=== PATIENT | male | born 1970 | race Caucasian/White ===

== ENCOUNTER 2016-07-05 15:25 | Emergency (ER) | payer MEDICAID ==
[~2016-07-05] VITALS: Ht 190.5 cm; Wt 158.8 kg
[~2016-07-05 15:25] MED LIST: PAXIL10 MG/5 ML PO; RISPERDAL1 MG/1 ML PO
--- NOTE | 2016-07-05 20:54 | Emergency Room Report ---
History of Present Illness General Chief Complaint: Behavioral Complaint Source: Patient Present Illness HPI 46-year-old male presents to the emergency department and upon initial evaluation the patient states that he wants to leave and that he no longer needs anything from us here in the emergency department. After the patient refill of his medication however he states "it's fine. I don't need anything, i just want to leave." History of present illness and ROS is limited due to patient cooperation and refusal of evaluation. Allergies: Coded Allergies: No Known Allergies (Unverified , 01/04/16) Nursing Documentation-[facility] Past Medical History: No History, Except For History Of Psychiatric Problem: Yes - Schizoaffective disorder, depression Review of Systems All Other Systems: limited - secondary to pt. cooperation Physical Exam Vital Signs Date Time Temp Pulse Resp B/P Pulse Ox O2 Delivery O2 Flow Rate FiO2 07/05/16 15:35 97.5 100 16 137/69 99 Room Air Sp02 EP Interpretation: reviewed, abnormal - tachycardic at 100bpm General Appearance: no apparent distress, alert, GCS 15, obese, other - Pt is desheveled, and had strong odor of urine. Head: normocephalic, atraumatic ENT: hearing grossly normal, normal pharynx, no angioedema, normal voice, other - obvious rhinorrhes in the right nare Neck: full range of motion, supple/symm/no masses Respiratory: no respiratory distress, speaking full sentences Cardiovascular #1: tachycardia - 100bpm Gastrointestinal: no guarding Musculoskeletal: back normal, gait/station normal, normal range of motion Neurologic: alert, oriented x3, responsive, motor strength/tone normal, normal gait, speech normal Psychiatric: memory normal, no suicidal/homicidal ideation, anxious, other - pt. is very desheveled, and anxious to leave. denies hearing voices. Skin: normal color, no rash Medical Decision Making PA Attestation Dr. Sheth is my supervising Physician whom patient management has been discussed with. Diagnostic Impression: Primary Impression: Encounter for medical screening examination Additional Impression: Behavioral disorder ER Course 46-year-old male presents to the emergency department and upon initial evaluation the patient states that he wants to leave and that he no longer needs anything from us here in the emergency department. After the patient refill of his medication however he states "it's fine. I don't need anything, i just want to leave." History of present illness and ROS is limited due to patient cooperation and refusal of evaluation. VS are WNL other than mild tachycardia at 100BPM - Pt denies hearing voices at this time and wants to leave, denies SI/HI. -Pt declined tissue that was offered for his rhinorrhea. -Pt. declined offer to refill his medication. -Pt. eloped Last Vital Signs Date Time Temp Pulse Resp B/P Pulse Ox O2 Delivery O2 Flow Rate FiO2 07/05/16 15:35 97.5 100 16 137/69 99 Room Air Disposition: ELOPED Condition: Unknown Referrals: NON PHYSICIAN (PCP) Sarina Hood Jul 05, 2016 20:54
[2016-07-05 22:30] VITALS: BP_SYST 1; BP_SYST 137; BP_DIAS 1; BP_DIAS 69
== END 2016-07-05 17:00 | disposition left against medical advice (07) ==
LOC: EMR 16:49
DX: F91.9 Conduct disorder, unspecified (principal)
CPT/HCPCS: 99281